=== PATIENT | male | born 1965 | race Asian ===

== ENCOUNTER 2017-05-02 10:36 | Outpatient (CLI) | payer OTHER | END 2017-05-02 11:40 | disposition home or self-care (01) | LOC: US 10:36 | DX: R94.5 Abnormal results of liver function studies (principal) ==

== ENCOUNTER 2019-05-06 23:42 | Outpatient (CLI) | payer OTHER | END 2019-05-06 23:46 | disposition short-term general hospital (02) | LOC: AMB 23:42 | DX: R41.82 Altered mental status, unspecified (principal); S09.8XXA Other specified injuries of head, initial encounter; W18.39XA Other fall on same level, initial encounter; Y93.89 Activity, other specified; Y92.018 Other place in single-family (private) house as the place of occurrence of the external cause | CPT/HCPCS: A0425; A0427 ==

== ENCOUNTER 2019-05-06 23:51 | Emergency (ER) | payer OTHER ==
[~2019-05-06] VITALS: Ht 177.8 cm; Wt 74.8 kg
[2019-05-07] VITALS: TEMP 97.3
[2019-05-07 00:12] LABS: PLATELET COUNT 374 K/uL (142-355)
[2019-05-07 00:27] LABS: POTASSIUM 4.6 mmol/L (3.6-5.2)
[2019-05-07 02:07] VITALS: BP 115/60
== END 2019-05-07 02:34 | disposition short-term general hospital (02) ==
LOC: ED 23:51
PROVIDERS: Emergency Medicine
PROC: 0T9B70Z Drainage of Bladder with Drainage Device, Via Natural or Artificial Opening (ICD-10-PCS; principal; 2019-05-06)
DX: S06.5X0A Traumatic subdural hemorrhage without loss of consciousness, initial encounter (principal); S02.19XA Other fracture of base of skull, initial encounter for closed fracture; S06.350A Traumatic hemorrhage of left cerebrum without loss of consciousness, initial encounter; S06.340A Traumatic hemorrhage of right cerebrum without loss of consciousness, initial encounter; W18.39XA Other fall on same level, initial encounter; Y92.89 Other specified places as the place of occurrence of the external cause
CPT/HCPCS: 51702; 80053; 80307; 80320; 81000; 85027; 87088; 93005; 96360; 96375; 99285; J2060

== ENCOUNTER 2019-05-07 02:20 | Outpatient (CLI) | payer OTHER | END 2019-05-07 03:32 | disposition short-term general hospital (02) | LOC: AMB 02:20 | DX: R41.82 Altered mental status, unspecified (principal); S06.5X0A Traumatic subdural hemorrhage without loss of consciousness, initial encounter; S02.91XA Unspecified fracture of skull, initial encounter for closed fracture | CPT/HCPCS: A0425; A0427 ==

== ENCOUNTER 2021-03-10 13:01 | Emergency (ER) | payer OTHER ==
[2021-03-24 13:32] LABS: PLATELET COUNT 257 K/uL (142-355)
[2021-03-24 13:33] LABS: POTASSIUM 3.7 mmol/L (3.6-5.2)
== END 2021-03-10 16:20 | disposition home or self-care (01) ==
LOC: ED 13:01
PROVIDERS: Family Medicine
DX: H53.8 Other visual disturbances (principal); E86.0 Dehydration
CPT/HCPCS: 80053; 85027; 96360; 99284

== ENCOUNTER 2021-03-20 14:46 | Inpatient (IN) | payer OTHER ==
[~2021-03-20] VITALS: Ht 182.9 cm; Wt 61.8 kg
[2021-03-27 20:00] VITALS: BP 124/75; TEMP 98.1
[2021-03-28 08:00] VITALS: BP 140/98; TEMP 98
--- NOTE | 2021-03-28 18:05 | NUR ---
Patient is lying in bed with eyes opened and at time. He is alert to person only this shift. He took meds whole with no distress noted. Patient continue to work with physical therapy. He is able to eat meals with set up help only. He was assisted with drinking his supplemental shake. No acute distress noted. Bed alarm is on and call light is within reach.
[2021-03-28 20:00] VITALS: BP 129/82; TEMP 98.1
[2021-03-29 08:00] VITALS: BP 128/78; TEMP 98.5
--- NOTE | 2021-03-29 15:47 | NUR ---
I received message to call Abbie Don [phone] today regarding Rick Ochoa. I spoke to patient to ask him if he knew her and he stated "Thats my brothers daughter", when i asked him who his broter was, he stated "Marko ochoa". I asked for pts permission to speak with his niece, Abbie, about his care and he gave verbal consent. I phoned Abbie Don [phone] and she stated that her father, Marko Ochoa, was in the hospital in [place] and had a TIA. She stated that he usually "looks out for Rick". When i questioned her if there were any other family members that participate in Mr. Rick Ochoa' care, she stated that "my father is usually the one who helps him". She stated she would be available to help Mr. Rick Ochoa and will be available by phone at any time.
--- NOTE | 2021-03-29 18:00 | NUR ---
Pt. SITTING UP IN CHAIR EATING.
[2021-03-29 20:00] VITALS: BP 121/85; TEMP 98.8
[2021-03-29 20:20] VITALS: BP 121/85; TEMP 98.8
--- NOTE | 2021-03-29 21:05 | NUR ---
PT SITTING UP IN CHAIR. CHAIR ALARM ON. NO DISTRESS NOTED.
--- NOTE | 2021-03-30 03:52 | NUR ---
03/29/21 2200: PT CONTINUES TO SIT UP IN CHAIR. WHEN ASKED IF HE WAS READY TO GO BACK TO BED PT SHOOK HIS HEAD NO. CHAIR ALARM ON.
--- NOTE | 2021-03-30 03:54 | NUR ---
03/30/21 0000: PT BACK TO BED. BED ALARM ON.NO DISTRESS NOTED. PT REFUSES TO USE WALKER.
--- NOTE | 2021-03-30 03:55 | NUR ---
03/30/21 0200: PT SLEEPING. NO DISTRESS NOTED.
[2021-03-30 08:00] VITALS: BP 131/79; TEMP 98.1
--- NOTE | 2021-03-30 13:52 | NUR ---
PT UP SITTING IN CHAIR WITH ASSISTANCE FROM PT. PT ALERT AND AWAKE. REORIENTED PT ON USING THE CALL LIGHT BEFORE TRYING TO GET UP OUT OF CHAIR. ASKED PT TO TELL ME WHAT BUTTON HE WOULD PUSH TO CALL FOR HELP, PT. STATED "THE RED ONE."
[2021-03-30 20:00] VITALS: BP 129/92; TEMP 98.5
--- NOTE | 2021-03-30 20:08 | NUR ---
PT SITTING UP IN CHAIR WITH CHAIR ALARM ON. PT HAD JUST FINISHED EATING AND ATE ALL EXCEPT HIS DESSERT. NO DISTRESS NOTED.
--- NOTE | 2021-03-30 21:45 | NUR ---
PT CONTINUES TO SIT UP IN CHAIR. CHAIR ALARM ON. PT DOES NOT WISH TO GO TO BED AT THIS TIME. NO DISTRESS NOTED.
--- NOTE | 2021-03-31 05:31 | NUR ---
PT UP TO BATHROOM TO VOID. GETS OUT OF BED WITHOUT CALLING NURSE. BED ALARM ON.
[2021-03-31 08:00] VITALS: BP 118/70; TEMP 97.9
--- NOTE | 2021-03-31 18:53 | NUR ---
PT UP IN CHAIR MOST OF DAY. ALERT BUT DISORIENTED AT TIMES TO PLACE, RECENT AND RESIDENTIAL MEMORY. NAD NOTED. PT REPORTED TO SPEECH THERAPIST THAT HE WANTS TO GO HOME AND LIVE BY HIMSELF ONCE HEIS DISCHAGED AND DOES NOT WANT TO BE IN A RESIDENTIAL FACILITY. PT UNABLE TO AMBULATE WITHOUT ASSISTANCE. UNSTEADY GAIT AND POOR COGNITIVE FUNCTION. BED/CHAIR ALARM ON AT ALL TIMES. PT HAS TO BE REDIRECTED WHEN EATING MEALS WITH SET UP ASSISTANCE. PT HAS SHORT ATTENTION SPAN AND DIFFICULTY STAYING FOCUS FOR A LONG PERIOD OF TIME DURING CONVERSATION.
--- NOTE | 2021-03-31 19:45 | NUR ---
IN PT'S ROOM FOR ASSESSMENT, PT IS IN THE BED LAYING IN HIGH FOWLERS WITH BEDSIDE TABLE IN FRONT OF PT. PT WAS FINISHING UP SUPPER. PT WAS A&O X1, PT COULD TELL FENCE INSTALLER FOREMAN HIS FULL NAME BUT COULD NOT TELL WHERE HE WAS OR WHY AND WHAT DAY IT IS. HEART S1 AND S2 AUSCULTATED, PERIPHERAL PULSES FELT IN ALL FOUR EXTREMITIES, PULSE IS WEAK IN BILATERAL FEET. CAPILLARY REFILL <3 SEC, SKIN TURGOR ELASTIC. LUNG SOUND CLEAR IN ALL 5 LOBES, NO COUGH PRESENT. GASRIC SOUNDS AUSCULTATED IN ALL QUADRANTS. NO EDEMA PRESENT AND PT DENIES ANY PAIN AT THIS TIME. BED ALARM IS ON AND CALL LIGHT WITHIN REACH.
[2021-03-31 20:09] VITALS: BP 113/70; TEMP 98.8
--- NOTE | 2021-03-31 21:26 | NUR ---
WENT IN PT'S ROOM TO CHECK IN. PT IS IN LOW FOWLERS LAYING ON HIS RIGHT SIDE TRYING TO GO TO SLEEP. ROOM IS DARK, CALL LIGHT WITHIN REACH, AND BED ALARM IS ON. WILL CONTINUE TO MONITOR.
--- NOTE | 2021-04-01 00:10 | NUR ---
PT'S BED ALARM WENT OFF, PT NEEDED TO USE THE BATHROOM. PT WAS ASSISTED BY RADIAGRAPH OPERATOR TO USE THE BATHROOM. PT IS BACK IN BED NOW IN LOW FOWLERS WITH BED ALARM ON AND CALL LIGHT WITHIN REACH. PT WAS RE-EDUCATED TO USE THE CALL LIGHT WHEN NEEDING TO GET UP, PT VERBALIZED UNDERSTANDING.
--- NOTE | 2021-04-01 03:27 | NUR ---
PT IS ASLEEP IN LOW FOWLERS ON RIGHT SIDE. BREATHING IS EVEN AND NONLABORED, NAD IS NOTED AT THIS TIME. LIGHTS ARE OFF, TV ON, AND BED ALARM IS ON. WILL CONTINUE TO MONITOR.
[2021-04-01 08:00] VITALS: BP 134/80; TEMP 98.3
[2021-04-01 20:00] VITALS: BP 116/79; TEMP 98.4
--- NOTE | 2021-04-02 05:25 | NUR ---
Pt has rested through the night with no c/o voiced. Bed alarm on and has only gone off once so far this shift as pt was going to bathroom to void. Residential Door Installer and another nurse assisted pt due to pt's unsteay balance. Pt swayed while ambulating back to bed and nurse had to catch him. Assisted pt back to bed and call light in easy reach. Educated pt on use of call light when needing to get up. Pt just nodded head in yes motion. Bed alarm turned back on.
--- NOTE | 2021-04-02 05:48 | NUR ---
Just now returned to pt's room due to bed alarm going off. Again assisted pt to bathroom. Noted pt had incontinent episode on bed. Bed linen changed along with gown. Required two person assist due to pt's severely unsteady gait. Pt assisted back to bed and bed alarm turned back on. Call light in easy reach.
[2021-04-02 08:00] VITALS: BP 130/78; TEMP 97.9
--- NOTE | 2021-04-02 08:30 | NUR ---
ANSWERED BED ALARM, PT UP IN RM AMBULATING TO BATHROOM, GAIT UNSTEADY, NO ASSISTIVE DEVICE USED, PT AMBULATED TO BATHROOM AND BACK TO BED WITH LIMITED ASSISTANCE ONLY, NAD NOTED, NO FURTHER NEEDS AT THIS TIME, CALL LIGHT WITHIN REACH, WILL CONTINUE TO MONITOR
--- NOTE | 2021-04-02 14:00 | NUR ---
PT SITTING IN HF, NAD NOTED, NONLABORED BREATHING, PT WATCHING TV AND VOICES NO NEEDS AT THIS TIME, REINFORCED TO PT TO CALL NURSE BEFORE TRYING TO GET OUT OF BED PT VERBALIZED UNDERSTANDING, CALL LIGHT WITHIN REACH, WILL CONTINUE TO MONITOR
[2021-04-02 20:00] VITALS: BP 124/77; TEMP 99.2
--- NOTE | 2021-04-02 20:00 | NUR ---
Rec'd pt resting in bed with eyes closed. No s/s of distress. Bed alarm on. Call light in easy reach.
--- NOTE | 2021-04-03 02:43 | NUR ---
Pt cont to rest in bed with eyes closed at this time. No s/s of distress. Bed alarm on. Call light in easy reach.
[2021-04-03 08:00] VITALS: BP 141/91; TEMP 98.8
--- NOTE | 2021-04-03 14:30 | NUR ---
PATIENT STILL EATING LUNCH TRAY. TRAY ALMOST 100% EMPTY. ENSURE GIVEN TO PATIENT. PATIENT OFFERED BATHROOM AT THIS TIME. PATIENT DENIED NEED. PATIENT FREE OF NEEDS AT THIS TIME.
[2021-04-03 20:00] VITALS: BP 126/87; TEMP 98.1
--- NOTE | 2021-04-03 20:55 | NUR ---
PT SITTING UP IN CHAIR. DENIES ANY PAIN OR NEEDS AT THIS TIME.
--- NOTE | 2021-04-04 00:04 | NUR ---
PT LAYING IN BED SLEEPING. NO DISTRESS NOTED.
--- NOTE | 2021-04-04 01:08 | NUR ---
PT CONFUSED. FOUND PT URINATING IN SINK. PT DOES NOT UNDERSTAND TO USE URINAL, THINKS SINK IS URINAL.
[2021-04-04 08:00] VITALS: BP 132/92; TEMP 98.2
--- NOTE | 2021-04-04 16:33 | NUR ---
[facility] signed by patient. Last covered day of medicare A services will be 04/07/2021, discharge 04/08/2021. Patient's brother Marko Ochoa notified via phone by rehabilitation case coordinator.
--- NOTE | 2021-04-04 16:43 | NUR ---
i spoke to patients brother and next of kin, Marko Ochoa [phone], today to inform his that pt has been presented a [facility] and his last covered day of therapy would be this saturday 04/07 and he will tenatively be discharged on sat04/08/21. Marko Ochoa verbalized understanding and is still hospitalized in [place], but states if he discharges in time, he will take Mr. Rick Ochoa to his home to stay with him and provide his care at [address] [place] [address]. He also stated that he will reach out to Tracie Meyer, who was previously staying with Mr. Rick Ochoa in his home as a roommate in case he is not discharged in time and that Mr. Cabrera's niece, Abbie Ochoa [phone] will help coordinate Mr. Cabrera's discharge to stay with Tracie in his own home. I made a call to Abbie to make sure this discharge plan is acceptable and she stated that she would help coordinate Mr. Cabrera's discharge home with his caregiver Traciebeverly jackson her father, Marko, is not yet out of the hospital on Saturday04/08/21.
[2021-04-04 20:00] VITALS: BP 137/105; TEMP 98.9
--- NOTE | 2021-04-04 20:16 | NUR ---
PT SITTING UP IN CHAIR EATING SUPPER AND WATCHING TV. DENIES DISCOMFORT. NO VOICED COMPLAINTS AT THIS TIME.
--- NOTE | 2021-04-04 22:42 | NUR ---
04/04/21 2130: ASSISTED PT TO BATHROOM TO URINATE. GAIT UNSTEADY. WILL NOT USE WALKER.
--- NOTE | 2021-04-05 06:18 | NUR ---
PT SLEEPING ON LEFT SIDE. NO DISTRESS NOTED.
[2021-04-05 08:00] VITALS: BP 151/87; TEMP 98.2
--- NOTE | 2021-04-05 10:16 | NUR ---
PT SITTING UP IN BED EATING BREAKFAST. PT FREQUENTLY HAS TO BE REORIENTED TO ADLS. LONG PERIODS OF EATING TIME. CONSTANTLY REMINDING PT TO FINISH MEAL. PT APPEARS DISTRACTED DURING MEAL TIME. NAD NOTED. ALERT AND AWAKE. COMPLIANT WITH TX AND MEDS. SWALLOWS PO MEDS WITHOUT DIFFICULTY.
--- NOTE | 2021-04-05 12:42 | NUR ---
PTS DAUGHTER AND MOTHER OF DAUGHTER AT BEDSIDE. ASKED PT IF HE KNEW WHO HIS GUEST WERE AND PT STATED "NO, I DON'T KNOW THEM." PT CONTINUES TO HAVE LONG AND SHORT TERM MEMORY PROBLEMS. PATIENT HAD A BATH AND BED LINEN WAS CHANGED TODAY. PT ASSISTED BY BRUSHING HIS TEETH ON HIS OWN. NAD NOTED.
--- NOTE | 2021-04-05 13:34 | NUR ---
rec call from Tracie Gonzalez [phone] to please return her call concerning pt Rick Ochoa. I spoke to pt in his room to ask if he knew Tracie Gonzalez, and he stated, "yes, she stays with me", CECIL-Lillian Boo was also at the bedside when i asked permission from pt if it was ok to discuss his care and discharge plans with Tracie Gonzalez, he stated "yes you can." I informed him that i would call her and help arrange his discharge plans with her, he stated, "thank you." I called and spoke with Tracie Gonzalez who stated that she "lives with him all the time", she stated that she also has experience as a "sitter for the elderly" and that "my mom is legally blind so i know how to care for older people". She stated that pt only has crutches at home so he may need a walker and that he only has a fixed shower head at home in his tub/shower space. Ms. Gonzalez also went on to say, Rick's brother, Marko asked me to call to make sure we have Rick taken care of. She stated she will help make sure he has transport home also.
--- NOTE | 2021-04-05 13:42 | NUR ---
PT UP IN CHAIR. PTS DIET CHANGED TO REGULAR DIET, PT HAS NO DIFFICULTY SWALLOWING OR EATING MEALS. PER JOSE PT SCHEDULED TO BE RELEASED TO GO HOME ON SATURDAY, APRIL 08. LAST DAY OF PT ON 04/07/21. FORMER ROOMMATE WILL BE STAYING WITH PT.
--- NOTE | 2021-04-05 14:53 | NUR ---
PT HAD A BM DURING PT, BLOOD OBSERVED IN STOOL, STOOL WAS HARD. CONSULTED WITH DR VALENTE AND OBTAINED AN ORDER FOR COLACE. PT ASSISTED TO BATHROOM BY PT.
--- NOTE | 2021-04-05 16:20 | NUR ---
ASSISTED PT FROM CHAIR TO BED USING WALKER. GAIT UNSTEADY. WHILE ASSISTING PT TO BED PT STATED "I WANT TO GO THAT WAY." PT WAS POINTING TO THE DOOR. REORIENTED PT TO WHERE HE WAS AND ENCOURAGED PT TO MOVE TOWARD BED AND PT DID WITH NO DIFFICULTY.
--- NOTE | 2021-04-05 18:01 | NUR ---
PT CLIMBED OVER THE BED RAILS AND BED ALARM WAS ON. PT WAS AT STANDING AT SINK WITH WATER ON UPON ARRIVING TO ROOM. PT GAIT UNSTEADY. ASSISTED PT BACK TO BED. REORIENTED PT ON RISK OF FALLING WHEN HE GETS OUT OF BED WITHOUT ASSISTANCE AND THE PROPER USE OF HIS CALL LIGHT.
[2021-04-05 20:00] VITALS: BP 132/86; TEMP 98.9
--- NOTE | 2021-04-05 21:04 | NUR ---
Pt resting in bed with eyes closed at this time. Pt had climbed over bed rails earlier attempting to go to bathroom. Pt remains unsteady on feet. Assisted x2 assist to bathroom and back to bed along with incontinent care provided. Bed alarm turned back on. Call light in easy reach.
--- NOTE | 2021-04-06 01:55 | NUR ---
Pt resting in bed with eyes closed. No c/o voiced. No s/s of distress. Call light in easy reach.
--- NOTE | 2021-04-06 06:08 | NUR ---
Pt resting in bed with eyes closed. Alarm went off earlier when pt was attempting to get OOB unassisted. Upon entering room pt was observed sitting on side of bed and stated he needed to go to bathroom. Pt was assisted to bathroom x2 person assist due to pt's unsteady gait. Also noted pt had had an incontinent episode. Pericare done and new depend applied. Assisted pt back to bed. Bed alarm turned back on and call light placed in easy reach. No s/s of distress noted at this time.
[2021-04-06 08:00] VITALS: BP 148/82; TEMP 98.6
--- NOTE | 2021-04-06 11:08 | NUR ---
PT UP IN CHAIR WITH ASSISTANCE FROM THERAPY. PT TALKING ON PHONE. WHEN ASKED PT WHO HE WAS TALKING TO, PT REPLIED "I WAS TALKING TO MY COUSIN." ASKED PT HAS HE SPOKEN TO RAKESH TODAY, HIS "ROOMMATE" PT REPLIED "I TALKED TO HER TOO" PT REFUSED TO TAKE A SHOWER/BATH, REPLIED "I WILL TAKE A SHOWER WHEN I GET HOME TODAY" NAD NOTED. DENIES ANY PAIN/DISCOMFORT.
--- NOTE | 2021-04-06 14:59 | NUR ---
PTS COUSIN WANDA HERNANDEZ VISITED PT TODAY. COUSIN CONCERNED ABOUT PTS WELL BEING AFTER DISCHARGE. OBTAINED PTS CELL PHONE NUMBER AND REPORTED HIS CONCERNS TO JOSE IN FOR FOLLOW-UP CALL. PTS "ROOMMATE" VISITED HIM X2 TODAY AND ONLY STAYED ABOUT30 MINUTES TO AN HOUR PER VISIT. PT UP IN CHAIR WITH NO VOICED COMPLAINTS. PT BELIEVES THAT HE CAN GO HOME AND LIVE BY HIMSELF. PT CONTINUES TO BE CONFUSED AND DISORIENTED. PT WALKED DOWN THE ALANIZ WITH PT USING WALKER. OBSERVED PTS GAIT UNSTEADY AFTER WALKING A FEW MINUTES. PT UP IN CHAIR MOST OF THE DAY.
--- NOTE | 2021-04-06 17:21 | NUR ---
PT IN BED WITH EYES CLOSED. NAD NOTED. PT CONTINUES TO BE CONFUSED. UNABLE TO RECOGNIZE ANY OF HIS VISITORS. WHEN ASKED WHO HIS VISTORS ARE, PT REPLYS "I DON'T KNOW THEM PEOPLE" BED ALARM ON AT ALL TIMES DUE TO PTS ATTEMPT TO GET OUT OF BED AND HAS UNSTEADY GAIT AND CONFUSED.
[2021-04-06 20:00] VITALS: BP 132/87; TEMP 98.1
--- NOTE | 2021-04-06 20:02 | NUR ---
Pt resting in bed with eyes closed. No c/o voiced. Skin w/d. Bed alarm on. Call light in easy reach. No s/s of distress.
--- NOTE | 2021-04-07 03:19 | NUR ---
Pt resting in bed with eyes closed. No c/o voiced. Bed alarm on. Call light in easy reach.
[2021-04-07 08:00] VITALS: BP 141/92; TEMP 98.6
--- NOTE | 2021-04-07 16:28 | NUR ---
i spoke with pts caregiver, Tracie Meyer [phone] to see if [employer] had delivered pts walker and bedside commode. She stated "not yet" but stated she was at pts home and would be there all day if they wanted to deliver it today. I spoke to [employer] and they agreed to deliver to pts home today, they stated they did speak to Tracie Meyer also. I faxed gema referral for Home Health nursing and physical therapy to [facility] [phone]/ [phone] at the request of pt and Dr. Coto. I also spoke to pts brother, Marko Ochoa [phone] who stated that he was still in the hospital and that he would be home soon to check on his brother Rick, but that if pt was accepting of going home with Tracie Meyer, then it was okay with him. I also spoke with pts first cousin, [facility] [phone] who has visited pt here at the hospital, who stated that he tried to talk with pt about going into a prison, but he stated that Mr. Rick Ochoa refused to go to the prison. He stated that Mr. Cabrera said "I want to go home to my house". Mr. Salmon stated that pt is "stubborn" and that "i cant do anything about it". I informed Mr. Salmon that bc Mr. Cabrera refuses prison placement, and because he is able to make his wants & needs known, he states that Tracie Meyer is his caregiver and Tracie Meyer agrees to provide his care, that we are not able to send him to a prison against his will. Mr. Salmon verbalized understanding.
[2021-04-07 20:00] VITALS: BP 131/79; TEMP 98.5
--- NOTE | 2021-04-08 03:23 | NUR ---
PATIENT RESTING IN BED WATCHING TV. PATIENT DENIES ANY PAIN
[2021-04-08 08:00] VITALS: BP 147/92; TEMP 98.6
--- NOTE | 2021-04-08 08:31 | NUR ---
DR. VALENTE NOTIFIED OF BP 147/92- VO GIVEN FOR LISINOPRIL. ORDER WRITTEN AND SCANNED TO PHARMACY.
--- NOTE | 2021-04-08 08:51 | NUR ---
SPOKE TO JOSE BOOTHE REGARDING HOME HEALTH ACCEPTANCE FOR THIS PATIENT. JOSE STATED THAT [facility] ACCEPTED THIS PT FOR HH SERVICES AND PHYSICAL THERAPY. I ALSO INQUIRED REGARDING BSC AND WALKER FOR THIS PT. JOSE STATED THAT SHE SPOKE TO RAKESH AND RAKESH WAS WAITING ON DELIVERY OF EQUIPMENT YESTERDAY
--- NOTE | 2021-04-08 10:25 | NUR ---
BP RECHECK- 131/78, HR 78.
[2021-04-08 10:31] VITALS: BP 131/78
--- NOTE | 2021-04-08 10:44 | NUR ---
DC INSTRUCTIONS EXPAINED TO RAKESH EVANS MARKER MACHINE, WRITTEN RX GIVEN TO HER WELL. MARKER MACHINE VERBALIZED UNDERSTANDING.
--- NOTE | 2021-04-08 10:50 | NUR ---
PT WHEELED TO EXIT FOR TRANSPORT HOME WITH COUNTERINTELLIGENCE ANALYST. ALL BELONGINGS SENT WITH PATIENT. PT LEFT FLOOR IN NAD.
--- NOTE | 2021-04-10 15:38 | NUR ---
i spoke with pts caregiver Tracie Meyer new ph #[phone] today to notify of his new pt PCP appt with Dariela Saldana NP on 04/21/21 @ 10am. I have faxed the DC summary to her office. I confirmed with Dr. Coto and Tracie Meyer that pt was only to be taking the Lisinopril 5mg po daily and the EC Aspirin 325mg po daily, she verbalized understanding.
== END 2021-04-08 10:44 | disposition home health service (06) | DRG 64 ==
LOC: MED/SURG 14:46
PROVIDERS: ADMIT Internal Medicine; ATTEND Internal Medicine
DX: I63.522 Cerebral infarction due to unspecified occlusion or stenosis of left anterior cerebral artery (principal); I69.391 Dysphagia following cerebral infarction; G93.89 Other specified disorders of brain; G93.40 Encephalopathy, unspecified; E43 Unspecified severe protein-calorie malnutrition; M62.81 Muscle weakness (generalized); R26.81 Unsteadiness on feet; R27.8 Other lack of coordination; Z74.1 Need for assistance with personal care; R48.8 Other symbolic dysfunctions; R63.0 Anorexia
CPT/HCPCS: 87081

== ENCOUNTER 2021-06-24 16:42 | Emergency (ER) | payer OTHER ==
[~2021-06-24] VITALS: Ht 182.9 cm; Wt 61.7 kg
[2021-06-24 16:42] VITALS: TEMP 98.4
[2021-06-24 17:24] LABS: PLATELET COUNT 252 K/uL (142-355)
[2021-06-24 17:35] LABS: POTASSIUM 2.5 mmol/L (3.6-5.2); SODIUM 144 mmol/L (136-145)
[2021-06-24 17:42] LABS: PARTIAL THROMBOPLASTIN TIME 24.7 SECONDS (24.5-33.6)
[2021-06-24 20:25] VITALS: BP 132/81
== END 2021-06-24 20:25 | disposition home or self-care (01) ==
LOC: ED 16:42
PROVIDERS: Emergency Medicine
DX: E16.1 Other hypoglycemia (principal); E87.6 Hypokalemia; F10.129 Alcohol abuse with intoxication, unspecified; Y90.3 Blood alcohol level of 60-79 mg/100 ml; Z86.73 Personal history of transient ischemic attack (TIA), and cerebral infarction without residual deficits
CPT/HCPCS: 36415; 80053; 80307; 80320; 84484; 85027; 85610; 85730; 93005; 96360; 96365; 96366; 96375; 99284; J7060

== ENCOUNTER 2021-09-19 19:17 | Emergency (ER) | payer OTHER ==
[~2021-09-19] VITALS: Ht 177.8 cm; Wt 61.7 kg
[2021-09-19 20:02] LABS: PLATELET COUNT 262 K/uL (142-355)
[2021-09-19 20:11] LABS: POTASSIUM 4.3 mmol/L (3.6-5.2)
[2021-09-19 20:20] LABS: PARTIAL THROMBOPLASTIN TIME 29.2 SECONDS (24.5-33.6)
[2021-09-19 22:40] VITALS: BP 121/68; TEMP 102.9
== END 2021-09-19 22:45 | disposition home or self-care (01) ==
LOC: ED 19:20
PROVIDERS: Hospitalist
DX: J40 Bronchitis, not specified as acute or chronic (principal); J06.9 Acute upper respiratory infection, unspecified; R06.02 Shortness of breath; F17.210 Nicotine dependence, cigarettes, uncomplicated
CPT/HCPCS: 36415; 36600; 80053; 80320; 82550; 82805; 83880; 84484; 85027; 85610; 85730; 93005; 96365; 96368; 99284; J0696; J2930

== ENCOUNTER 2021-12-23 18:53 | Emergency (ER) | payer OTHER ==
[~2021-12-23] VITALS: Ht 177.8 cm; Wt 61.7 kg
[2021-12-23 19:24] LABS: POTASSIUM 3.6 mmol/L (3.6-5.2)
[2021-12-23 19:25] LABS: PLATELET COUNT 256 K/uL (142-355)
[2021-12-23 21:55] VITALS: BP 125/75; TEMP 98.5
== END 2021-12-23 21:55 | disposition home or self-care (01) ==
LOC: ED 18:53
PROVIDERS: Emergency Medicine Emergency Medical Services
DX: M54.59 Other low back pain (principal); M25.552 Pain in left hip; M25.551 Pain in right hip; G93.89 Other specified disorders of brain
CPT/HCPCS: 80053; 81000; 83735; 85027; 96360; 96361; 96374; 96375; 99284; J1885; J2930